=== PATIENT | male | born 1945 | race Caucasian/White ===

== ENCOUNTER → 2019-05-04 11:30 | Outpatient (CLI) | payer MEDICARE, SELFPAY ==
[2019-01-10 09:53] VITALS: BMI 23.5
--- NOTE | 2019-05-04 11:30 | TISS_PTH ---
PATIENT: SARAH LENZ LOC: [facility] U#:[id number] AGE/SX: 79/M ROOM: RE05/04/[address]: Dr. Candelario Davila MD : 1945 BED: DIS: SPEC #: [id number] RECD: 05/06/19 10:28 STATUS: MICHAELA DIVYA #: [id number] KENTRELL: 05/04/19 11:[address]: Candelario Davila DEPT: SURGICAL PATHOLOGY RECD BY: Gladis Hernandez ENTERED: 05/06/19 11:08 SP TYPE: Tissue Bx ARASELI DR: Dr. Radha Mcdonnell MD Tissues: Skin of eyelid, NOS Procedures: Surgery Specimen Level IV HEADER OPERATION: Not noted PRE-OP DIAGNOSIS: Increased size with pigment TISSUE SUBMITTED: Left lower lid biopsy MICROSCOPIC DIAGNOSIS Left lower lid, biopsy: Consistent with seborrheic keratosis with actinic keratosis-like features. SJ:naun 05/07/19 MICROSCOPIC DESCRIPTION Slides are reviewed. GROSS DESCRIPTION Received in fixative is one container labeled with the patient's name and designated left lower lid. The specimen consists of multiple irregular fragments of recinos soft tissue that in aggregate measure 0.5 x 0.5 x 0.1 cm. The specimen is totally submitted in one cassette. / GUILLERMO:naun 05/06/19 TC:5 CPT: 98272
--- NOTE | 2019-05-04 11:30 | TISS_PTH ---
PATIENT: SARAH LENZ LOC: [facility] U#:[id number] AGE/SX: 79/M ROOM: RE05/04/[address]: Dr. Candelario Davila MD : 1945 BED: DIS: SPEC #: [id number] RECD: 05/06/19 10:28 STATUS: MICHAELA DIVYA #: [id number] KENTRELL: 05/04/19 11:[address]: Candelario Davila DEPT: SURGICAL PATHOLOGY RECD BY: Gladis Hernandez ENTERED: 05/06/19 11:08 SP TYPE: Tissue Bx ARASELI DR: Dr. Radha Mcdonnell MD Tissues: Skin of eyelid, NOS Procedures: Surgery Specimen Level IV HEADER OPERATION: Not noted PRE-OP DIAGNOSIS: Increased size with pigment TISSUE SUBMITTED: Left lower lid biopsy MICROSCOPIC DIAGNOSIS Left lower lid, biopsy: Consistent with severe keratosis with actinic keratosis-like features. SJ:naun 05/07/19 MICROSCOPIC DESCRIPTION Slides are reviewed. GROSS DESCRIPTION Received in fixative is one container labeled with the patient's name and designated left lower lid. The specimen consists of multiple irregular fragments of recinos soft tissue that in aggregate measure 0.5 x 0.5 x 0.1 cm. The specimen is totally submitted in one cassette. / SJ:naun 05/06/19 TC:5 CPT: 62774
== END ==
PROVIDERS: Family Provider Internal Medicine; PCP Internal Medicine; Referring Provider Ophthalmology; Visit Provider Ophthalmology
DX: H02.9 Unspecified disorder of eyelid (principal)
CPT/HCPCS: 88305

== ENCOUNTER 2021-07-26 06:17 | Outpatient (CLI) | payer MEDICARE, SELFPAY ==
--- NOTE | 2021-07-26 06:28 | ECHOD_ITS ---
Reason For Study: CHEST PAIN Procedure This was a 2D Doppler, Color Flow transthoracic echocardiogram. Exam performed in department. Left Ventricle Normal LV size. Left ventricular systolic function is normal. The estimated ejection fraction is 55 %. Stage 1 diastolic dysfunction. No regional wall motion abnormalities noted. Right Ventricle Normal RV size. Normal systolic function. Atria Normal left atrium. Probable chiari network. Mitral Valve Normal mitral valve. Tricuspid Valve Normal tricuspid valve. Mild (1+) tricuspid valve insufficiency. Aortic Valve Trisinus/trileaflet aortic valve. Pulmonic Valve Normal pulmonic valve. Great Vessels Normal aortic root. The pulmonary artery is normal size. Normal inferior vena cava. Pericardium/Pleural No pericardial effusion. MMode/2D Measurements & Calculations LVIDd: 5.1 cm IVSd: 0.65 cm Ao root diam: 3.5 cm LVIDs: 3.3 cm LVPWd: 0.95 cm RVDd: 3.1 cm FS: 34.5 % LAV(MOD-bp): 36.5 ml LA A4 area: 12.8 cm2 LA dimension(2D): 3.4 cm LAV(MOD-bp) Indexed: 20.5 ml/m2 LAV(MOD-sp2): 38.2 ml LAV(MOD-sp4): 28.7 ml RA A4 area: 12.7 cm2 Time Measurements MV dec time: 0.19 sec Doppler Measurements & Calculations MV E max jet: 63.9 cm/sec Lat Peak E' Jet: 5.9 cm/sec Med Peak E' Jet: 7.4 cm/sec MV A max jet: 75.6 cm/sec E/E' lat: 10.8 E/E' med: 8.6 MV E/A: 0.85 Ao V2 max: 90.8 cm/sec LV V1 max: 83.0 cm/sec PA V2 max: 125.5 cm/sec Ao max P.3 mmHg LV V1 max P.8 mmHg TR max jet: 228.5 cm/sec TR max P.9 mmHg ECHO/Echo Complete Interpretation Summary Normal LV size. Left ventricular systolic function is normal. The estimated ejection fraction is 55 %. Stage 1 diastolic dysfunction. Ordering Physician: Mychal Leon Referring Physician: Mychal Leon Performed By: Monica Baron, NATALI, RVT
--- NOTE | 2021-07-26 18:03 | STRESSREP ---
Stress Test Report Exercise myocardial perfusion stress test. 75-year-old male with a history of atypical chest pain pain Stress protocol: Resting EKG demonstrates normal sinus rhythm with a rate of 60 bpm normal intervals are noted resting blood pressure is 142/90 mmHg. The patient exercised according to regular Yuri protocol for total duration of 4 minutes completing 1 minute into stage II of the Yuri protocol the maximum heart rate attained was 126 bpm which was 87% of max impact at heart rate the maximum workload was 7 metabolic equivalents. At rest there were no ST or T wave changes noted suggest ischemia and at peak exercise upsloping ST changes were noted with did not meet the criteria for ischemia. No clinical angina was noted the test was terminated due to dyspnea. Myocardial perfusion protocol. 11.3 mCi of technetium 99m sestamibi was injected at rest. The patient exercised according to regular Yuri protocol for 4 minutes and at peak exercise 33.8 mCi of technetium 99m sestamibi was injected stress images were obtained stress and rest images were reconstructed and compared in the short axis vertical long and horizontal long axis. Gated images were also obtained to Perfusion SPECT analysis: Review of the stress images demonstrate normal uptake of tracer noted in the all areas of the myocardium. The resting images similarly demonstrate normal uptake of tracer noted in all areas of the myocardium. No areas of reversibility are noted suggest ischemia and no previous infarct is noted. Gated SPECT analysis: The gated ejection fraction is 62%. Conclusion: Normal exercise myocardial perfusion stress test at a moderate workload. No clinical angina noted.
== END 2021-07-26 23:59 | disposition short-term general hospital (02) ==
PROVIDERS: PCP Internal Medicine; Referring Provider Internal Medicine Cardiovascular Disease; Visit Provider Internal Medicine Cardiovascular Disease
DX: R07.9 Chest pain, unspecified (principal); Z98.890 Other specified postprocedural states
CPT/HCPCS: 78452; 93017; 93306; A9500; A4216

== ENCOUNTER 2022-07-22 08:09 | Day surgery (SDC) | payer MEDICARE, SELFPAY ==
[2022-07-22] VITALS (7 sets, daily range): BP systolic 76–150; BP diastolic 51–76; PULSE 56–93; RESP 12–18; TEMP 36.4–36.8; O2SAT 93–100; BMI 24.0
--- NOTE | 2022-07-22 08:34 | HP.PCM_ITS ---
History and Physical Date of Admission: 07/22/22 Visit Reasons:?COLONOSCOPY Chief Complaint: colonoscopy Cork Grinder Required: No Is patient in pain?: No Allergies Penicillins Allergy (Verified 06/21/22 13:11) Shortness of breath Medications aspirin 81 mg chewable tablet 81 mg PO DAILY@0800 04/04/17 [History Confirmed 06/21/22] fish oil-dha-epa 1,200 mg-144 mg-216 mg capsule 1 ea PO BID 04/04/17 [History Confirmed 06/21/22] multivitamin 1 ea PO DAILY 04/04/17 [History Confirmed 06/21/22] pravastatin 80 mg tablet 80 mg PO QHS 04/04/17 [History Confirmed 06/21/22] escitalopram oxalate 20 mg tablet (Lexapro) 10 mg PO DAILY 06/21/22 [History Confirmed 06/21/22] psyllium husk 0.4 gram capsule (Metamucil) 0.4 g PO BID 06/21/22 [History Confirmed 06/21/22] PFSH Medical History?(Updated 06/21/22 @ 13:[address] Gutierrez Padron MD) Anxiety Hemorrhoid Personal history of colonic polyps Psoriasis Varicose vein of scrotum Surgical History?(Updated 06/21/22 @ 13:08 by Monica Alex) History of cataract surgery Hx of colonoscopy Hx of surgical amputation of finger Family History?(Updated 06/21/22 @ 13:08 by Monica Alex) Sister Heart diseaseMother Hypertension Alzheimer's disease Cancer Heart diseaseFather Heart disease Congestive heart failure (CHF) Social History? Smoking Status:? Never smoker second hand exposure:? No alcohol intake:? current alcohol intake frequency: holidays/special occasions only substance use type:? does not use caffeine:? Yes what type of physical activity do you participate in:? walking, aerobics and weight training frequency:? 3-4 times per week seatbelt use:? always HPI HPI HPI: 76-year-old gentleman.? He returns to discuss potential surveillance colonoscopy.? On April 04, 2017 I performed a colonoscopy for him because of a personal history of colon polyps.? His previous colonoscopy to that was February 28, 2014 when he had a tubular adenoma in the descending colon.? There is no family history of colon cancer..? Follow-up colonoscopy at 5 years recommended. Denies bright red blood per rectum or melena.? For the past 3 weeks though he has been constipated.? He takes Metamucil.? That is working to some degree.? He states that over the years he has had variable degrees of constipation.? He is on low-dose aspirin and fish oil.? He otherwise enjoys a very good quality of life. ROS General General: No weight change, appetite, fatigue, colon cancer, breast cancer or weakness HEENT HEENT: Yes eye surgery; No difficulty swallowing, eye injury, swollen glands or hoarseness Endo Endocrine: No thyroid disease, diabetes mellitus, thyroid cancer, Hair loss, heat intolerance or cold intolerance Skin Skin: No rash or changing moles Breast Breast: No left breast lump, right breast lump, nipple discharge, breast pain, abnormal mammogram, abnormal US or breast enlargement Cardio Cardiovascular: No murmur, pacemaker, heart disease, atrial fibrillation, high blood pressure, heart attack, heart stent, palpitations, shortness of breat with exertion or chest pain Psych Psychiatric: No depression, anxiety or hearing voices Resp Respiratory: No shortness of breath, No sleep apnea, No cough, No COPD, No asthma, No emphysema and No wheezing Gastro Gastrointestinal: No abdominal pain, No nausea or vomiting, No diarrhea, Yes constipation, No blood in stool, No acid reflux, Yes hemorrhoids, No ulcers, No gallbladder problem and No black,tarry stools Trevor Hematologic: No blood thinners, No blood disorders, No bleeding, No anemia and No blood clots Additional Details: Aspirin and fish oil Neuro Neurologic: No system reviewed and no additional complaints, except as documented, No as per HPI, No abnormal gait, No abnormal hearing, No abnormal movements, No abnormal speech, No behavioral changes, No burning sensations, No confusion, No convulsions, No disequilibrium, No dizziness, No localized weakness, No frequent falls, No headache(s), No lack of coordination, No loss of vision, No memory loss, No numbness, No other visual disturbances, No radicular pain, No restless legs, No sensory deficit, No syncope, No tingling, No tremor(s), No weakness and No other Exam Const General: cooperative, healthy appearing and comfortable [facility] Head: normal to inspection Eyes General: appearance normal, both eyes and all related structures Neck Neck: normal visual inspection Chest Chest palpation & inspection: normal inspection of the chest Other: Right chest medial to the nipple there is a 11 mm diameter exophytic medium brown keratotic skin lesion. Resp Effort & Inspection: normal respiratory effort Auscultation: clear to auscultation bilaterally Cardio Rate: regular rate Rhythm: regular rhythm GI Palpation: soft and no hepatosplenomegaly Musc Cervical Spine: normal cervical lordosis Skin General: no rashes or lesions noted Neuro General: patient alert, patient awake and patient oriented x3 Extrem General: normal to inspection and no calf tenderness Psych Appearance: grossly normal Assessment and Plan Assessment and Plan (1) Personal history of colonic polyps: ?Status:?Acute ?Plan: The patient has a personal history of colon polyps and recently has had significant aggravation of his constipation.? I have recommended to him that he take a MiraLAX like product and start that immediately a capful per day.? I do propose for him a colonoscopy with possible biopsy or polypectomy as indicated.? His previous one did require a fair amount of Demerol and Versed so we will do this 1 with monitored anesthesia care.? He is aware of the technique, benefit, risk, alternatives.? Pending the results of this colonoscopy he might not require further additional screening/surveillance technique. I appreciate the ongoing opportunity of assisting with the surgical care.? We will have him hold his fish oil for the procedure.? We will also him do a 2-day bowel prep utilizing magnesium citrate on day 1 clear liquids for 2 days and the MiraLAX bowel prep for day 2. Regarding the skin lesion of his right breast areola medial to the nipple I believe that this is a seborrheic keratosis.? I have offered him office excision at his discretion.? He will consider that and recontact us as to how he would like to proceed. Copy: Dr. Sathya Padron M.D., F.A.C.S. (2) Skin lesion: ?Status:?Acute ?Patient Instructions: 1. Begin taking one capful of miralax (or generic equivalent) every day for chronic constipation 2.Have colonoscopy for personal hx of colon polyps I have examined the patient and the H&P has been reviewed. There are no clinical changes since date of exam. Gutierrez Padron M.D., F.A.C.S.
[2022-07-22] MEDS: Lactated Ringers 1,000 ML 15 ML IV (08:35)
--- NOTE | 2022-07-22 10:13 | OP.COLON_ITS ---
Patient Name: Oleksandr Kelley Procedure Date: 07/22/2022 9:50 AM Date of : 1945 Age: 76 Procedure: Colonoscopy Indications: High risk colon cancer surveillance: Personal history of colonic polyps Providers: Gutierrez Padron MD Medicines: See the Anesthesia note for documentation of the administered medications Patient Profile: Last Colonoscopy: April 2017. Complications: No immediate complications. Procedure: Pre-Anesthesia Assessment: - Prior to the procedure, a History and Physical was performed, and patient medications and allergies were reviewed. The patient's tolerance of previous anesthesia was also reviewed. The risks and benefits of the procedure and the sedation options and risks were discussed with the patient. All questions were answered, and informed consent was obtained. Prior Anticoagulants: The patient has taken no previous anticoagulant or antiplatelet agents. ASA Grade Assessment: II - A patient with mild systemic disease. After reviewing the risks and benefits, the patient was deemed in satisfactory condition to undergo the procedure. After I obtained informed consent, the scope was passed under direct vision. Throughout the procedure, the patient's blood pressure, pulse, and oxygen saturations were monitored continuously. The Colonoscope was introduced through the anus and advanced to the cecum, identified by appendiceal orifice and ileocecal valve. The colonoscopy was somewhat difficult due to a tortuous colon. The patient tolerated the procedure well. The quality of the bowel preparation was good. Scope In: 9:52:10 AM Scope Withdrawal Time 0 hours 6 minutes 31 seconds Scope Out: 10:08:05 AM Total Procedure Duration Time 0 hours 15 minutes 55 seconds Findings: The digital rectal exam findings include non-thrombosed internal hemorrhoids and internal hemorrhoids that prolapse with straining, but require manual replacement into the anal canal (Grade III). The digital rectal exam findings include non-thrombosed external hemorrhoids and internal hemorrhoids that prolapse with straining, but spontaneously regress to the resting position (Grade II). Diverticula were found in the sigmoid colon. The colon (entire examined portion) was moderately tortuous. Advancing the scope required applying abdominal pressure. Impression: - Non-thrombosed internal hemorrhoids and internal hemorrhoids that prolapse with straining, but require manual replacement into the anal canal (Grade III) found on digital rectal exam. - Non-thrombosed external hemorrhoids and internal hemorrhoids that prolapse with straining, but spontaneously regress to the resting position (Grade II) found on digital rectal exam. - Diverticulosis in the sigmoid colon. - Tortuous colon. - No specimens collected. Recommendation: - Discharge patient to home. - Resume previous diet. - Continue present medications. - Repeat colonoscopy in 10 years for screening purposes. Procedure Code(s): --- Professional --- 61085, Colonoscopy, flexible; diagnostic, including collection of specimen(s) by brushing or washing, when performed (separate procedure) Diagnosis Code(s): --- Professional --- Z86.010, Personal history of colonic polyps K64.2, Third degree hemorrhoids K64.4, Residual hemorrhoidal skin tags K57.30, Diverticulosis of large intestine without perforation or abscess without bleeding Q43.8, Other specified congenital malformations of intestine CPT copyright 2017 [employer]. All rights reserved. The codes documented in this report are preliminary and upon rehabilitation manager review may be revised to meet current compliance requirements. Gutierrez Padron MD 07/22/2022 10:13:12 AM This report has been signed electronically. Number of Addenda: 0 Note Initiated On: 07/22/2022 9:50 AM
--- NOTE | 2022-07-22 10:14 | OP.CCLET_ITS ---
07/22/2022 Radha Mcdonnell [address] [id number] Re : Colonoscopy procedure for Oleksandr Kelley Dear Dr. Mcdonnell This procedure was performed on Friday, July 22, 2022. My impressions and recommendations are as follows: Impressions : - Non-thrombosed internal hemorrhoids and internal hemorrhoids that prolapse with straining, but require manual replacement into the anal canal (Grade III) found on digital rectal exam. - Non-thrombosed external hemorrhoids and internal hemorrhoids that prolapse with straining, but spontaneously regress to the resting position (Grade II) found on digital rectal exam. - Diverticulosis in the sigmoid colon. - Tortuous colon. - No specimens collected. Recommendations : - Discharge patient to home. - Resume previous diet. - Continue present medications. - Repeat colonoscopy in 10 years for screening purposes. My findings are described in the full procedure note, which is enclosed. If I can be of further assistance, please feel free to contact me at Doctor phone number(s): Work: . Sincerely, Gutierrez Padron MD 07/22/2022 10:13:12 AM This report has been signed electronically.
== END 2022-07-22 11:26 | disposition home or self-care (01) ==
LOC: EN 08:09 → AC 08:28
PROVIDERS: PCP Internal Medicine; Referring Provider Internal Medicine; Visit Provider Surgery
PROC: 0DJD8ZZ Inspection of Lower Intestinal Tract, Via Natural or Artificial Opening Endoscopic (ICD-10-PCS; CPT 45378; principal; 2022-07-22 09:25)
DX: Z12.11 Encounter for screening for malignant neoplasm of colon (principal); K64.1 Second degree hemorrhoids; K64.2 Third degree hemorrhoids; F41.9 Anxiety disorder, unspecified; E78.00 Pure hypercholesterolemia, unspecified; Q43.8 Other specified congenital malformations of intestine; Z79.82 Long term (current) use of aspirin; Z79.899 Other long term (current) drug therapy; Z86.010 Personal history of colon polyps; Z87.891 Personal history of nicotine dependence
CPT/HCPCS: 45378; J7120; J2405